=== PATIENT | female | born 1945 | race Caucasian/White ===

== ENCOUNTER → 2018-11-04 | Outpatient (CLI) | payer MEDICARE | LOC: M.RAD 12:22 | DX: S72.092 Other fracture of head and neck of left femur (principal); M43.8X5 Other specified deforming dorsopathies, thoracolumbar region; M41.86 Other forms of scoliosis, lumbar region; M43.17 Spondylolisthesis, lumbosacral region; I25.10 Atherosclerotic heart disease of native coronary artery without angina pectoris; X58.XXXD Exposure to other specified factors, subsequent encounter ==

== ENCOUNTER → 2018-12-24 | Outpatient (CLI) | payer MEDICARE | LOC: M.MRI 12-17 13:30 | DX: M48.56XA Collapsed vertebra, not elsewhere classified, lumbar region, initial encounter for fracture (principal); M48.54XA Collapsed vertebra, not elsewhere classified, thoracic region, initial encounter for fracture; M51.26 Other intervertebral disc displacement, lumbar region; M48.061 Spinal stenosis, lumbar region without neurogenic claudication; M51.27 Other intervertebral disc displacement, lumbosacral region; M48.07 Spinal stenosis, lumbosacral region; K57.30 Diverticulosis of large intestine without perforation or abscess without bleeding; N28.1 Cyst of kidney, acquired ==

== ENCOUNTER → 2019-01-08 | Outpatient (CLI) | payer MEDICARE ==
[~2019-01-08] MED LIST: CALCIUM 600 +1 EAC1 PO; CARVEDILOL12.5 MG PO; FUROSEMIDE 20 M20 M1 PO; KEPPRA 500 MG500 M1 PO; LEVOTHYROXINE PO; LISINOPRIL40 MG PO; MOBIC15 MG PO; TYLENOL EXTRA500 MG PO; ZOCOR20 MG PO
== END ==
LOC: M.RAD 13:30
DX: M81.0 Age-related osteoporosis without current pathological fracture (principal); E03.9 Hypothyroidism, unspecified; Z78.0 Asymptomatic menopausal state

== ENCOUNTER → 2019-01-09 | Outpatient (CLI) | payer MEDICARE ==
--- NOTE | 2019-01-27 11:25 | PAINCON ---
[address] [address] PAIN MANAGEMENT CONSULTATION Name: LACIE VALENTINE Room: [facility] JAKE AquinoEstuardo#: [id number] Admission: 01/09/19 Attend Phys: Ramiro Min MD Discharge: Date of : 47 Report #: [id number] THIS REPORT FOR: //name// CC: SHILOH Min DATE OF SERVICE: 01/09/2019 CHIEF COMPLAINT: Leg pain. HISTORY OF PRESENT ILLNESS: The patient is a 73-year-old female who has been referred to the pain clinic because of back and leg pain. Pain involves her left leg. It has been more problematic over the last 2-3 months. She has tried a Medrol Dosepak. She notes that this did help somewhat with the pain. Describes the pain as a constant achiness. Pain is sharp, shooting, and increases with movement. She has tried some nonsteroidal anti-inflammatory medications, but they have not been very helpful. She is using meloxicam and Tylenol. Rates her pain today as a 8-9/10 with activity, cold temperatures, walking, going from a sitting to a standing position. She also avoids lifting and bending. Turning and pivoting are the worst pain generators. This current episode of pain has been most problematic since 11/13/2018. She has not fallen. Has had her femur pinned secondary to a hip fracture. Has had a compression fracture. Has not had physical therapy, has been using a walker over the last 3 months. Does have a history of seizures, but has not had a seizure in the last year. Has had some pain and discomfort in the left groin area. Has difficulty lifting her left leg when she gets out of the car or into bed because of the severity of pain. Has difficulty getting into a truck because of the height of the truck and inability to lift her leg above the running board. ALLERGIES: ERYTHROMYCIN AND FIORINAL. CURRENT MEDICATIONS: Carvedilol 12.5 mg b.i.d., Lasix 20 mg b.i.d., levothyroxine 0.088, lisinopril 40 mg, simvastatin 20 mg, timolol 0.5% ophthalmic drops b.i.d., [id number] mg, Meloxicam 7.5 mg, and levetiracetam 500 mg b.i.d. PAST MEDICAL HISTORY: COPD, left leg pain, moderate stage glaucoma, generalized osteoporosis, elevated glucose, hypercholesterolemia, essential hypertension, coronary artery disease, congestive cardiomyopathy, seizure history, none since 11/2014, mal type, glaucoma, bilateral cataracts, and congestive heart failure. PAST SURGICAL HISTORY: Tonsillectomy in 1951, heart stent in 2000, and femur pinning in 2000. SOCIAL HISTORY[place] [address] PAIN MANAGEMENT CONSULTATION Name: LACIE VALENTINEZABETH Room: [facility]#: [id number] Admission: 01/09/19 Attend Phys: Ramiro Min MD Discharge: Date of : 47 Report #: [id number] REVIEW OF SYSTEMS: Generally good health, weight changes, fatigue, weakness, eye disease, glaucoma, cataracts, chronic sinus problems, heart trouble, swelling of the feet and ankles, shortness of breath, abdominal pain, depression, insomnia, head injury, seizures, difficulty walking, back pain, weakness of muscles and joints, joint pain, hot and cold intolerance, thyroid disease. LABORATORY DATA: MRI of the lumbar spine dated 12/24/2018: 1. Mild broad-based disk bulge results in mild left foraminal stenosis. 2. L4-L5, mild broad-based disk bulge results in moderate left and mild right foraminal stenosis. 3. L5-S1, mild broad-based disk bulge results in mild bilateral foraminal stenosis. A small posterior annular tears present. Additional findings, colonic diverticulosis and right renal cortical cyst. Left hip radiographs three views, AP pelvis on 11/04/2018, impression, prior open reduction and internal fixation of left femur neck fracture with anatomic alignment. The hip joint space appears well preserved bilaterally. No acute fracture or dislocation. On 11/04/2018, lumbar spine radiographs 5 views including oblique dated 11/04/2018, impression, an age indeterminate compression deformities of T10, T11, T12-L1, L3, L4 and L5. Recommended clinical correlation. Grade 2 spondylolisthesis of S1 on S2. Subtle levoscoliosis. PAIN CLINIC ASSESSMENT AND PQRS: 1. The patient does have arthritic changes involving the left side. The patient is not being followed for rheumatoid arthritis. 2. The patient has had a left hip replacement. 3. Height 5 feet 1 inch, weight 128 pounds, BMI is 24.1. 4. Vital signs: Blood pressure, blood pressure 92/61, heart rate 84, respiratory rate 16, room air saturation 95%. 5. Temperature 97.5. 6. Pain intensity 8-9/10 with activity. 7. Fall history: The patient has not fallen in the last 3 months. 8. Blood thinner. The patient is not on a blood thinning medication. 9. Hypertension. The patient is being treated for hypertension. 10. Opioids greater than 6 weeks. The patient is not on opioid regimen on a regular basis. 11. Risk assessment tool, low for opioid use. 12. Functional assessment tool. 13. Recreational drug use: The patient denies. 14. Tobacco: The patient does smoke, has smoked for the last 50 years. Smokes one-half pack of cigarettes per day. Discussed benefits of [place] [address] PAIN MANAGEMENT CONSULTATION Name: LACIE VALENTINE Room: [facility]#: [id number] Admission: 01/09/19 Attend Phys: Ramiro Min MD Discharge: Date of : 47 Report #: [id number] 15. Alcohol. The patient denies frequent use of alcoholic beverages. PHYSICAL EXAMINATION: GENERAL: The patient is a well-developed, well-nourished white female. Appears her stated age. She is alert and oriented x 3. Affect is appropriate. Speech is fluent. HEENT: Normocephalic, atraumatic. Extraocular eye muscles intact. Sclerae nonicteric. Mucous membranes are moist. NECK: Without adenopathy or JVD. The patient does have a raspy voice. EXTREMITIES: Upper extremity muscle strength judged to be 4+/5 for the major muscle groups in the upper extremity. The patient has a well-healed scar on the left hip area. The patient complains of some pain in the left groin area. Has difficulty lifting her left leg because of pain. Palpation and pressure in the area of the left greater trochanteric area causes a significant reproduction of the patient's pain. IMPRESSION: Greater trochanteric bursitis involving the left hip. RECOMMENDATIONS: We discussed treatment options with the patient. Risks and benefits of an injection in the left greater trochanteric area was discussed. The patient does have a hip pinning. Possibility of infection, worsening of pain, no improvement in pain, bleeding, nerve damage were discussed and the patient elects to proceed. PROCEDURE NOTE: The patient was assisted in getting to the examination table. She was assisted in getting on the table. She was placed in the right lateral decubitus position. Her left hip area was sterilely prepped with a chlorhexidine solution and allowed to dry. A second cleaning of this area with a chlorhexidine solution was undertaken and allowed to dry. The left greater trochanteric area was palpated. Area of the trochanteric bursa was identified. A 25-gauge needle was then advanced into the area. A 3 seconds fluoroscopy time was used in identification of the hip area. A total of 80 mg Depo-Medrol and 6 mL of 0.25% bupivacaine was injected. The patient tolerated the procedure well. She remained in the Pain Clinic for an appropriate amount of time. She will follow up in the future as needed. We would like to thank you for letting us participate in her care. We hope she continues to improve. <ELECTRONICALLY SIGNED> By: Ramiro Min MD 01/27/19 [id number]. Juan Jose Min MD /nt
== END | disposition home or self-care (01) ==
LOC: M.PC 02:10
DX: M79.605 Pain in left leg (principal); M70.62 Trochanteric bursitis, left hip; I11.0 Hypertensive heart disease with heart failure; I50.9 Heart failure, unspecified; I25.10 Atherosclerotic heart disease of native coronary artery without angina pectoris; E78.00 Pure hypercholesterolemia, unspecified; H40.89 Other specified glaucoma; M81.0 Age-related osteoporosis without current pathological fracture; J44.9 Chronic obstructive pulmonary disease, unspecified; Z98.41 Cataract extraction status, right eye; Z88.8 Allergy status to other drugs, medicaments and biological substances; Z98.42 Cataract extraction status, left eye; Z98.890 Other specified postprocedural states; Z79.899 Other long term (current) drug therapy

== ENCOUNTER → 2019-02-11 | Outpatient (CLI) | payer MEDICARE ==
--- NOTE | ~2019-02-11 | PAINCON ---
[address] [address] PAIN MANAGEMENT CONSULTATION Name: LACIE VALENTINE Room: [facility] JAKE Elmore#: [id number] Admission: 02/11/19 Attend Phys: Ramiro Min MD Discharge: Date of : 47 Report #: [id number] THIS REPORT FOR: //name// CC: SHILOH Min DATE OF SERVICE: 02/11/2019 CHIEF COMPLAINT: The hip pain is better, I do have some soreness in her back. HISTORY: The patient is a 73-year-old female who has been seen in the pain clinic because of pain involving her left leg. As you may recall, she has had a left hip pinning. She has noticed that pain in the left trochanteric area was quite problematic. She underwent an injection at the last visit. She returns today indicating that the pain has improved. Does have some pain and discomfort in the lower portion of her back. She does have history and diagnosis of osteoporosis. She has had some pain that radiates into her hips as well as in the left and the right groin area. She does walk with a walker. Does not use one while at home. She is somewhat nervous that she might fall given that she has osteoporosis. She is scheduled to start Prolia in the near future. She does have a history of seizures. She has not had any seizures in the last year. She does have some difficulty getting in and out of the truck because of the height of the truck she was riding in. ALLERGIES: ERYTHROMYCIN AND FIORINAL. CURRENT MEDICATIONS: Carvedilol 12.5 mg b.i.d., Lasix 20 mg b.i.d., levothyroxine 0.088, lisinopril 40 mg, simvastatin 20 mg, timolol 0.5 mg ophthalmic b.i.d., loratadine 10 mg, meloxicam 7.5 mg, levetiracetam 500 mg b.i.d. PAIN CLINIC ASSESSMENT AND PQRS: 1. The patient has arthritic changes involving her left side. The patient has had a hip pinning on the left. She is not being treated for rheumatoid arthritis. 2. Height 5 feet 1 inch, weight 127 pounds, BMI is 24. 3. Vital Signs: Blood pressure 107/65, heart rate 77, respiratory rate 16, room air saturation 93%, temperature 97.6. 4. Pain intensity, 6/10. 5. Fall history. The patient has not fallen in the last 3 months. 6. Blood thinner. The patient is not on a blood thinning medication. 7. Hypertension. The patient is being treated for hypertension. 8. Opioids greater than 6 weeks. The patient is not on an opioid regimen. 9. Risk assessment tool, low for opioid use. 10. [place] [address] PAIN MANAGEMENT CONSULTATION Name: SERGELACIE Room: [facility] JAKE Elmore#: [id number] Admission: 02/11/19 Attend Phys: Ramiro Min MD Discharge: Date of : 47 Report #: [id number] 11. Recreational drug use, the patient denies. 12. Tobacco: The patient does smoke, has smoked for the last 50 years. She has had a few episodes where she stops smoking. She is aware that smoking is hazards and continues to try to decrease her tobacco use. 13. Alcohol: The patient denies frequent use of alcoholic beverages. PHYSICAL EXAMINATION: GENERAL: The patient is a well-developed, well-nourished white female. Appears her stated age. She is alert and oriented x 3. Her affect is appropriate. Speech is fluent. She is accompanied by her daughter. HEENT: Normocephalic, atraumatic. Extraocular eye muscles intact. Sclerae nonicteric. Mucous membranes are moist. The patient has some caries. NECK: Without adenopathy or JVD. The patient's voice is raspy. EXTREMITIES: Upper extremity muscle strength is judged to be 4+/5 for the major muscle groups in the upper extremity. The patient has a well-healed scar on the left hip area. Has some pain and discomfort in the left groin area. The patient has some difficulty lifting her left leg because of pain. Palpation in the area of the left greater trochanteric area is less than at the last visit. Has some pain and discomfort in the left as well as the right posterior and superior iliac spine areas. IMPRESSION: 1. Improvement of greater trochanter bursitis on the left. 2. Hypertension. 3. Osteoporosis. 4. Hypercholesterolemia. RECOMMENDATIONS: We discussed treatment options with the patient. At this juncture, she would like to continue on a conservative approach. Possibility of an injection to the trigger point areas in the back were reviewed. At this juncture, the patient would prefer to continue on a conservative course. She will return to the pain clinic as needed. We would like to thank you for letting us participate in her care. By: [id number]. Juan Jose Min MD /SUMANTH
== END ==
LOC: M.PC 05:20
DX: M70.62 Trochanteric bursitis, left hip (principal); M81.0 Age-related osteoporosis without current pathological fracture; I10 Essential (primary) hypertension; E78.00 Pure hypercholesterolemia, unspecified; Z88.1 Allergy status to other antibiotic agents; Z79.899 Other long term (current) drug therapy; Z79.891 Long term (current) use of opiate analgesic

== ENCOUNTER → 2021-03-16 | Outpatient (CLI) | payer MEDICARE | LOC: M.LAB 12:40 → M.CT 14:00 | PROVIDERS: ATTEND Nurse Practitioner Family | DX: N20.0 Calculus of kidney (principal); R10.9 Unspecified abdominal pain; N39.0 Urinary tract infection, site not specified; N28.1 Cyst of kidney, acquired; K57.30 Diverticulosis of large intestine without perforation or abscess without bleeding; M41.85 Other forms of scoliosis, thoracolumbar region; M16.0 Bilateral primary osteoarthritis of hip ==